=== PATIENT | male | born 1970 | race Caucasian/White ===

== ENCOUNTER 2017-06-03 12:02 | Inpatient (IN) | payer OTHER ==
[2017-06-03 13:52] VITALS: BMI 24.5
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
[2017-06-03] MEDS ORDERED: chlordiazePOXIDE HCL 25 MG CAPSULE PO PRN (16:27)
[2017-06-03] MEDS ORDERED: chlordiazePOXIDE HCL 25 MG CAPSULE PO ONE (16:27)
[2017-06-03] MEDS ORDERED: METHADONE HCL 10 MG TABLET (FOR DETOX USE ONLY) PO ONE ×2 (16:27→23:00)
[2017-06-03] MEDS ORDERED: MENTHOL/PHENOL 1 EACH UD MM PRN (16:28)
[2017-06-03] MEDS ORDERED: hydrOXYzine PAMOATE 50 MG CAPSULE (FP) PO PRN (16:28)
[2017-06-03] MEDS ORDERED: IBUPROFEN 400 MG TABLET (FP) PO PRN (16:28)
[2017-06-03] MEDS ORDERED: LOPERAMIDE HCL 2 MG CAPSULE PO PRN (16:28)
[2017-06-03] MEDS ORDERED: guaiFENesin/D-METHORPHAN HB 10 ML UNIT-DOSE CUPS PO PRN (16:28)
[2017-06-03] MEDS ORDERED: MAG HYDROX/AL HYDROX/SIMETH 30 ML UNIT-DOSE CUP PO PRN (16:28)
[2017-06-03] MEDS ORDERED: NICOTINE POLACRILEX 2 MG GUM BC PRN (16:28)
[2017-06-03] MEDS ORDERED: MAGNESIUM HYDROX 2400MG/30ML ORAL SUSPENSION 30 ML CUP PO PRN (16:28)
[2017-06-03] MEDS ORDERED: MAGNESIUM CITRATE 300 ML BOTTLE PO PRN (16:28)
[2017-06-03] MEDS ORDERED: ACETAMINOPHEN 325 MG TABLET (FP) PO PRN (16:28)
[2017-06-03] MEDS ORDERED: ALBUTEROL SO4 18 GM HFA INHALER IH PRN (16:32)
[2017-06-03] MEDS: THIAMINE HCL 100 MG TABLET (FP) PO SCH (22:51)
[2017-06-03] MEDS: chlordiazePOXIDE HCL 25 MG CAPSULE PO SCH (22:51)
[2017-06-03] MEDS: P-EPHED 60MG/TRIPROLIDI 2.5MG TABLET PO PRN (22:53)
[2017-06-04] MEDS: chlordiazePOXIDE HCL 25 MG CAPSULE PO SCH ×4 (06:33→22:32)
[2017-06-04] MEDS: P-EPHED 60MG/TRIPROLIDI 2.5MG TABLET PO PRN ×2 (06:34→22:33)
[2017-06-04 09:41] LABS: MCH 28.3 pg (25.7-33.7); MCHC 32.8 g/dl (32.0-35.9); MEAN CELL VOLUME 86.5 fl (80-96); MEAN PLT VOLUME 8.6 fl (7.5-11.1); PLATELET COUNT 224 K/MM3 (134-434); RDW 13.3 % (11.9-15.9); WHITE BLOOD COUNT 7.2 K/mm3 (4.0-10.0)
[2017-06-04] MEDS ORDERED: METHADONE HCL 10 MG TABLET (FOR DETOX USE ONLY) PO SCH (10:00)
[2017-06-04 10:09] LABS: ALBUMIN 3.3 g/dl (3.4-5.0); ALK PHOS 84 U/L (45-117); ANION GAP 7 (8-16); BILIRUBIN,TOTAL 0.4 mg/dL (0.2-1.0); CALCIUM 8.6 mg/dL (8.5-10.1); CO2 27 mmol/L (21-32); GLUCOSE,RANDOM 96 mg/dL (74-106); SGOT/AST 15 U/L (15-37); SGPT/ALT 15 U/L (12-78)
[2017-06-04] MEDS: PRENATAL VITAMINS W/ FOLIC ACID TABLET (FP) PO SCH (10:37)
[2017-06-04] MEDS ORDERED: FLU VACCINE QUAD 60 MCG/0.5 ML (MDV 17-18) IM ONE (12:00)
--- NOTE | 2017-06-04 12:10 | PN ---
[facility] CIWA - CIWA Score Nausea/Vomitin Muscle Tremors: 3 Anxiety: 3 Agitation: 2 Paroxysmal Sweats: 1-Minimal Palms Moist Orientation: 0-Oriented Tacttile Disturbances: 1-Very Mild Itch/Numbness Auditory Disturbances: 1-Very Mild Visual Disturbances: 0-None Headache: 2-Mild CIWA-Ar Total Score: 16 [facility]HS COWS - Scale Resting Pulse: 0= [place] 80 or Below Sweatin= Chills/Flushing Restless Observation: 3= Extraneous Movement Pupil Size: 1= Pupils >than Normal Bone or Joint Aches: 2= Severe Diffuse Aches Runny Nose/ Eye Tearin= Runny Nose/Eyes GI Upset > 30mins: 2= Nausea/Diarrhea Tremor Observation of Outstretched Hands: 2= Slight Tremor Visible Yawning Observation: 1= 1-2x During Session Anxiety or Irritability: 2=Irritable/Anxious Goose Flesh Skin: 0=Smooth Skin COWS Score: 16 [facility] Progress Note (SOAP) Subjective: alert,irritable,anxious,interrupted sleep,tremor,pain in the body and back Objective: 06/04/17 12:08 Vital Signs Temperature 98.2 F 06/04/17 11:06 Pulse Rate 76 06/04/17 11:06 Respiratory Rate 16 06/04/17 11:06 Blood Pressure 116/84 06/04/17 11:06 O2 Sat by Pulse Oximetry (%) ekg sinus bradycardia 48 min no chest pain,no sob,no dizziness Laboratory Last Values WBC 7.2 K/mm3 (4.0-10.0) 06/04/17 07:00 RBC 4.91 M/mm3 (4.00-5.60) 06/04/17 07:00 Hgb 13.9 GM/dL (11.7-16.9) 06/04/17 07:00 Hct 42.5 % (35.4-49) 06/04/17 07:00 MCV 86.5 fl (80-96) 06/04/17 07:00 MCH 28.3 pg (25.7-33.7) 06/04/17 07:00 MCHC 32.8 g/dl (32.0-35.9) 06/04/17 07:00 RDW 13.3 % (11.9-15.9) 06/04/17 07:00 Plt Count 224 K/MM3 (134-434) 06/04/17 07:00 MPV 8.6 fl (7.5-11.1) 06/04/17 07:00 Sodium 141 mmol/L (136-145) 06/04/17 07:00 Potassium 4.3 mmol/L (3.5-5.1) 06/04/17 07:00 Chloride 107 mmol/L (98-107) 06/04/17 07:00 Carbon Dioxide 27 mmol/L (21-32) 06/04/17 07:00 Anion Gap 7 (8-16) L 06/04/17 07:00 BUN 14 mg/dL (7-18) 06/04/17 07:00 Creatinine 1.0 mg/dL (0.7-1.3) 06/04/17 07:00 Creat Clearance w eGFR > 60 (>60) 06/04/17 07:00 Random Glucose 96 mg/dL (74-106) 06/04/17 07:00 Calcium 8.6 mg/dL (8.5-10.1) 06/04/17 07:00 Total Bilirubin 0.4 mg/dL (0.2-1.0) D 06/04/17 07:00 AST 15 U/L (15-37) D 06/04/17 07:00 ALT 15 U/L (12-78) D 06/04/17 07:00 Alkaline Phosphatase 84 U/L (45-117) 06/04/17 07:00 Total Protein 7.0 g/dl (6.4-8.2) 06/04/17 07:00 Albumin 3.3 g/dl (3.4-5.0) L 06/04/17 07:00 RPR Titer Nonreactive (NONREACTIVE) 06/04/17 07:00 Assessment: 06/04/17 12:09 withdrawal symptom Plan: continue detox
[2017-06-04] MEDS: THIAMINE HCL 100 MG TABLET (FP) PO SCH (22:32)
[2017-06-04] MEDS: diphenhydrAMINE HCL 50 MG CAPSULE PO PRN (22:32)
[2017-06-05] MEDS: chlordiazePOXIDE HCL 25 MG CAPSULE PO SCH ×3 (06:22→18:28)
--- NOTE | 2017-06-05 07:23 | EKG ---
Test Reason : Blood Pressure : / mmHG Vent. Rate : 049 BPM Atrial Rate : 049 BPM P-R Int : 158 ms QRS Dur : 110 ms QT Int : 380 ms P-R-T Axes : 053 026 044 degrees QTc Int : 343 ms SINUS BRADYCARDIA NONSPECIFIC T WAVE ABNORMALITY ABNORMAL ECG NO PREVIOUS ECGS AVAILABLE Confirmed by ANGELINA VIVAR MD ([id number]) on 06/05/2017 7:22:58 AM Referred By: Confirmed By:ANGELINA VIVAR MD
[2017-06-05] MEDS: PRENATAL VITAMINS W/ FOLIC ACID TABLET (FP) PO SCH (10:38)
[2017-06-05] MEDS: METHADONE HCL 5 MG TABLET (FOR DETOX USE ONLY) PO SCH (10:39)
--- NOTE | 2017-06-05 11:12 | PN ---
S CIWA - CIWA Score Nausea/Vomitin Muscle Tremors: 3 Anxiety: 3 Agitation: 2 Paroxysmal Sweats: 1-Minimal Palms Moist Orientation: 0-Oriented Tacttile Disturbances: 1-Very Mild Itch/Numbness Auditory Disturbances: 1-Very Mild Visual Disturbances: 0-None Headache: 2-Mild CIWA-Ar Total Score: 16 BHS COWS - Scale Resting Pulse: 0= [place] 80 or Below Sweatin= Chills/Flushing Restless Observation: 3= Extraneous Movement Pupil Size: 1= Pupils >than Normal Bone or Joint Aches: 2= Severe Diffuse Aches Runny Nose/ Eye Tearin= Nasal Congestion GI Upset > 30mins: 2= Nausea/Diarrhea Tremor Observation of Outstretched Hands: 2= Slight Tremor Visible Yawning Observation: 1= 1-2x During Session Anxiety or Irritability: 2=Irritable/Anxious Goose Flesh Skin: 0=Smooth Skin COWS Score: 15 [facility] Progress Note (SOAP) Subjective: alert,irritable,anxious,interrupted sleep,tremor,pain in the body and back Objective: 06/05/17 11:11 Vital Signs Temperature 98.4 F 06/05/17 10:00 Pulse Rate 78 06/05/17 10:00 Respiratory Rate 18 06/05/17 10:00 Blood Pressure 113/83 06/05/17 10:00 O2 Sat by Pulse Oximetry (%) Laboratory Last Values WBC 7.2 K/mm3 (4.0-10.0) 06/04/17 07:00 RBC 4.91 M/mm3 (4.00-5.60) 06/04/17 07:00 Hgb 13.9 GM/dL (11.7-16.9) 06/04/17 07:00 Hct 42.5 % (35.4-49) 06/04/17 07:00 MCV 86.5 fl (80-96) 06/04/17 07:00 MCH 28.3 pg (25.7-33.7) 06/04/17 07:00 MCHC 32.8 g/dl (32.0-35.9) 06/04/17 07:00 RDW 13.3 % (11.9-15.9) 06/04/17 07:00 Plt Count 224 K/MM3 (134-434) 06/04/17 07:00 MPV 8.6 fl (7.5-11.1) 06/04/17 07:00 Sodium 141 mmol/L (136-145) 06/04/17 07:00 Potassium 4.3 mmol/L (3.5-5.1) 06/04/17 07:00 Chloride 107 mmol/L (98-107) 06/04/17 07:00 Carbon Dioxide 27 mmol/L (21-32) 06/04/17 07:00 Anion Gap 7 (8-16) L 06/04/17 07:00 BUN 14 mg/dL (7-18) 06/04/17 07:00 Creatinine 1.0 mg/dL (0.7-1.3) 06/04/17 07:00 Creat Clearance w eGFR > 60 (>60) 06/04/17 07:00 Random Glucose 96 mg/dL (74-106) 06/04/17 07:00 Calcium 8.6 mg/dL (8.5-10.1) 06/04/17 07:00 Total Bilirubin 0.4 mg/dL (0.2-1.0) D 06/04/17 07:00 AST 15 U/L (15-37) D 06/04/17 07:00 ALT 15 U/L (12-78) D 06/04/17 07:00 Alkaline Phosphatase 84 U/L (45-117) 06/04/17 07:00 Total Protein 7.0 g/dl (6.4-8.2) 06/04/17 07:00 Albumin 3.3 g/dl (3.4-5.0) L 06/04/17 07:00 RPR Titer Nonreactive (NONREACTIVE) 06/04/17 07:00 Assessment: 06/05/17 11:11 withdrawal symptom Plan: continue detox
[2017-06-05] MEDS: chlordiazePOXIDE 5 MG CAPSULE PO SCH (22:25)
[2017-06-05] MEDS: THIAMINE HCL 100 MG TABLET (FP) PO SCH (22:25)
[2017-06-05] MEDS: P-EPHED 60MG/TRIPROLIDI 2.5MG TABLET PO PRN (22:27)
[2017-06-05 23:04] LABS: URINE APPEARANCE CLEAR; URINE BILIRUBIN NEGATIVE (NEGATIVE); URINE BLOOD NEGATIVE (NEGATIVE); URINE COLOR YELLOW; URINE GLUCOSE (UA) NEGATIVE (NEGATIVE); URINE KETONE NEGATIVE (NEGATIVE); URINE NITRITE NEGATIVE (NEGATIVE); URINE PROTEIN NEGATIVE (NEGATIVE)
[2017-06-06] MEDS: chlordiazePOXIDE 5 MG CAPSULE PO SCH ×3 (05:21→17:39)
[2017-06-06 09:44] LABS: URINE LEUK ESTERASE Negative (NEGATIVE)
[2017-06-06] MEDS: PRENATAL VITAMINS W/ FOLIC ACID TABLET (FP) PO SCH (10:02)
[2017-06-06] MEDS: METHADONE HCL 5 MG TABLET (FOR DETOX USE ONLY) PO SCH (10:02)
--- NOTE | 2017-06-06 11:38 | PN ---
[facility] Progress Note (SOAP) Subjective: alert,irritable,anxious,interrupted sleep,pain in the body Objective: 06/06/17 11:37 Vital Signs Temperature 96.7 F L 06/06/17 10:00 Pulse Rate 79 06/06/17 10:00 Respiratory Rate 18 06/06/17 10:00 Blood Pressure 139/74 06/06/17 10:00 O2 Sat by Pulse Oximetry (%) Assessment: 06/06/17 11:37 withdrawal symptom Plan: continue detox
[2017-06-06] MEDS: diphenhydrAMINE HCL 50 MG CAPSULE PO PRN (22:34)
[2017-06-06] MEDS: chlordiazePOXIDE HCL 10 MG CAPSULE PO SCH (22:34)
[2017-06-06] MEDS: THIAMINE HCL 100 MG TABLET (FP) PO SCH (22:34)
[2017-06-06] MEDS: P-EPHED 60MG/TRIPROLIDI 2.5MG TABLET PO PRN (22:35)
[2017-06-07] MEDS: chlordiazePOXIDE HCL 10 MG CAPSULE PO SCH ×2 (05:23→10:51)
[2017-06-07] MEDS ORDERED: METHADONE HCL 10 MG TABLET (FOR DETOX USE ONLY) PO SCH (10:00)
--- NOTE | 2017-06-07 10:45 | PN ---
[facility] Progress Note (SOAP) Subjective: alert,irritable,anxious,interrupted sleep Objective: 06/07/17 10:44 Vital Signs Temperature 99.3 F 06/07/17 09:54 Pulse Rate 81 06/07/17 09:54 Respiratory Rate 16 06/07/17 09:54 Blood Pressure 138/91 06/07/17 09:54 O2 Sat by Pulse Oximetry (%) Assessment: 06/07/17 10:44 withdrawal symptom Plan: continue detox,discharge in am
[2017-06-07] MEDS: PRENATAL VITAMINS W/ FOLIC ACID TABLET (FP) PO SCH (10:51)
--- NOTE | 2017-06-07 13:52 | PN ---
[facility] Progress Note Note: patient would like to be discharged,stable for discharge,seen by counselor, follow up with after care program as arrangement
--- NOTE | 2017-06-07 13:56 | DS ---
[facility] Detox Discharge Summary Admission Date: 06/03/17 Discharge Date: 06/07/17 - History Present History: Alcohol Dependence, Cannabis Dependence, Cocaine Dependence, Opioid Dependence Additional Comments: follow up with after care program as arrangement Pertinent Past History: weight decreased nicotine dependence - Physical Exam Results Vital Signs: Vital Signs Temperature 99.3 F 06/07/17 09:54 Pulse Rate 81 06/07/17 09:54 Respiratory Rate 16 06/07/17 09:54 Blood Pressure 138/91 06/07/17 09:54 O2 Sat by Pulse Oximetry (%) Pertinent Admission Physical Exam Findings: withdrawal finding - Treatment Hospital Course: Detox Protocol Followed, Detoxed Safely, Responded well, Discharged Condition Good Patient has Accepted a Rehab Referral to: declined - Medication Discharge Medications: Ambulatory Orders Albuterol Sulfate Inhaler - [Ventolin HFA Inhaler -] 2 inh IH Q4H PRN #0 - Diagnosis (1) Opioid dependence with withdrawal Current Visit: No Status: Chronic (2) Alcohol dependence with uncomplicated withdrawal Current Visit: Yes Status: Acute (3) Cannabis dependence Current Visit: No Status: Chronic (4) Cocaine dependence Current Visit: Yes Status: Acute (5) Weight decreased Current Visit: No Status: Chronic (6) Nicotine dependence Current Visit: Yes Status: Acute - AMA Did Patient Leave Against Medical Advice: No
[2017-06-07 14:14] VITALS: BP 109/70; PULSE 87; TEMP 98.5
[2017-06-08] MEDS ORDERED: METHADONE HCL 5 MG TABLET (FOR DETOX USE ONLY) PO SCH (06:00)
== END 2017-06-07 14:06 | disposition home or self-care (01) | DRG 773 ==
LOC: YASAS 12:02 → Y6N 15:56
PROVIDERS: ADMIT Internal Medicine; ATTEND Internal Medicine
PROC: HZ2ZZZZ Detoxification Services for Substance Abuse Treatment (ICD-10-PCS; principal; 2017-06-03)
DX: F11.23 Opioid dependence with withdrawal (principal); F10.230 Alcohol dependence with withdrawal, uncomplicated; F14.20 Cocaine dependence, uncomplicated; F12.20 Cannabis dependence, uncomplicated; F17.210 Nicotine dependence, cigarettes, uncomplicated; Z68.24 Body mass index [BMI] 24.0-24.9, adult; Z59.0 Homelessness
CPT/HCPCS: 36415; 80053; 81003; 85027; 86593; 93005; 93010

== ENCOUNTER 2020-11-09 10:52 | Inpatient (IN) | payer OTHER ==
[2020-11-09 11:36] VITALS: BMI 25.8
[2020-11-09] MEDS ORDERED: ALBUTEROL SO4 HFA INHALER IH PRN (12:27)
[2020-11-09] MEDS ORDERED: NICOTINE POLACRILEX 2 MG GUM BUC PRN (12:28)
[2020-11-09] MEDS ORDERED: MENTHOL/PHENOL 1 EACH UD MM PRN (12:28)
[2020-11-09] MEDS ORDERED: METHOCARBAMOL 500 MG TABLET PO PRN (12:28)
[2020-11-09] MEDS ORDERED: METHADONE HCL 10 MG TABLET (FOR DETOX USE ONLY) PO ONE (12:28)
[2020-11-09] MEDS ORDERED: MAGNESIUM CITRATE 300 ML BOTTLE PO PRN (12:28)
[2020-11-09] MEDS ORDERED: MAGNESIUM HYDROX 2400MG/30ML ORAL SUSPENSION 30 ML CUP PO PRN (12:28)
[2020-11-09] MEDS ORDERED: ACETAMINOPHEN 325 MG TABLET (FP) PO PRN ×2 (12:28)
[2020-11-09] MEDS ORDERED: cloNIDine HCL 0.1 MG TABLET PO PRN (12:28)
[2020-11-09] MEDS ORDERED: BISMUTH SUBSALICYLATE 262 MG/15 ML BTL PO PRN (12:28)
[2020-11-09] MEDS ORDERED: ONDANSETRON *ODT* 4 MG TABLET SL PRN (12:28)
[2020-11-09] MEDS ORDERED: MAG HYDROX/AL HYDROX/SIMETH 30 ML UNIT-DOSE CUP PO PRN (12:28)
[2020-11-09] MEDS: PRENATAL VITAMINS W/ FOLIC ACID TABLET (FP) PO SCH (13:12)
[2020-11-09] MEDS: hydrOXYzine PAMOATE 25 MG CAPSULE (FP) PO SCH ×3 (13:12→23:16)
[2020-11-09] MEDS: NICOTINE 14 MG/24 HOURS TOPICAL PATCH TD SCH (13:13)
[2020-11-09] MEDS: IBUPROFEN 400 MG TABLET (FP) PO PRN (13:13)
[2020-11-09 14:49] LABS: HEMATOCRIT 38.8 % (35.4-49); HEMOGLOBIN 13.5 GM/dL (11.7-16.9); MCH 29.8 pg (25.7-33.7); MCHC 34.8 g/dl (32.0-35.9); MEAN CELL VOLUME 85.6 fl (80-96); MEAN PLT VOLUME 8.8 fl (7.5-11.1); PLATELET COUNT 231 K/MM3 (134-434); RBC 4.53 M/mm3 (4.00-5.60); RDW 13.3 % (11.9-15.9); WHITE BLOOD COUNT 6.2 K/mm3 (4.0-10.0)
[2020-11-09 14:51] LABS: POTASSIUM 3.8 mmol/L (3.5-5.1)
[2020-11-09 14:58] LABS: CALCIUM 9.2 mg/dL (8.5-10.1)
[2020-11-09 14:59] LABS: BLOOD UREA NITROGEN 18.2 mg/dL (7-18)
[2020-11-09 15:00] LABS: CREATININE 1.3 mg/dL (0.55-1.3)
[2020-11-09 15:01] LABS: BILIRUBIN,TOTAL 0.9 mg/dL (0.2-1); TOT PROT 7.5 g/dl (6.4-8.2)
[2020-11-09 15:46] LABS: HIV INTERPRETATION NEGATIVE (NEGATIVE)
[2020-11-09] MEDS: QUEtiapine FUMARATE 50 MG TABLET PO SCH (23:15)
[2020-11-09] MEDS: MELATONIN 5 MG TABLETS PO SCH (23:16)
[2020-11-09] MEDS: THIAMINE HCL 100 MG TABLET (FP) PO SCH (23:17)
[2020-11-10] MEDS: hydrOXYzine PAMOATE 25 MG CAPSULE (FP) PO SCH ×2 (06:41→10:26)
[2020-11-10] MEDS ORDERED: METHADONE HCL 5 MG TABLET (FOR DETOX USE ONLY) ONE (09:04)
[2020-11-10] MEDS ORDERED: METHADONE HCL 10 MG TABLET (FOR DETOX USE ONLY) ONE (09:04)
[2020-11-10] MEDS ORDERED: METHADONE (DETOX) 20 MG, METHADONE (DETOX) 5 MG PO ONE (10:00)
[2020-11-10] MEDS: amLODIPine BESYLATE 10 MG TABLET (FP) PO SCH (10:26)
[2020-11-10] MEDS: PRENATAL VITAMINS W/ FOLIC ACID TABLET (FP) PO SCH (10:26)
[2020-11-10] MEDS: NICOTINE 14 MG/24 HOURS TOPICAL PATCH TD SCH (10:26)
[2020-11-10] MEDS: THIAMINE HCL 100 MG TABLET (FP) PO SCH (22:31)
[2020-11-10] MEDS: QUEtiapine FUMARATE 50 MG TABLET PO SCH (22:31)
[2020-11-10] MEDS: MELATONIN 5 MG TABLETS PO SCH (22:31)
[2020-11-10] MEDS: hydrOXYzine PAMOATE 25 MG CAPSULE (FP) PO PRN (22:32)
[2020-11-11] MEDS ORDERED: METHADONE HCL 10 MG TABLET (FOR DETOX USE ONLY) PO ONE (10:00)
[2020-11-11] MEDS: IBUPROFEN 400 MG TABLET (FP) PO PRN (10:13)
[2020-11-11] MEDS: amLODIPine BESYLATE 10 MG TABLET (FP) PO SCH (10:14)
[2020-11-11] MEDS: NICOTINE 14 MG/24 HOURS TOPICAL PATCH TD SCH (10:14)
[2020-11-11] MEDS: PRENATAL VITAMINS W/ FOLIC ACID TABLET (FP) PO SCH (10:14)
[2020-11-11] MEDS ORDERED: PNEUMOC 13-VAL CONJ-DIP CRM/PF 0.5 ML DISP.SYRIN IM ONE (11:57)
[2020-11-11] MEDS ORDERED: PNEUMOCOCCAL 23 VACCINE 0.5 ML VIAL IM ONE (12:00)
[2020-11-11] MEDS: MELATONIN 5 MG TABLETS PO SCH (21:33)
[2020-11-11] MEDS: THIAMINE HCL 100 MG TABLET (FP) PO SCH (21:33)
[2020-11-11] MEDS: QUEtiapine FUMARATE 50 MG TABLET PO SCH (21:33)
[2020-11-11] MEDS: hydrOXYzine PAMOATE 25 MG CAPSULE (FP) PO PRN (21:34)
[2020-11-12] MEDS ORDERED: METHADONE HCL 10 MG TABLET (FOR DETOX USE ONLY) ONE (08:54)
[2020-11-12] MEDS ORDERED: METHADONE HCL 5 MG TABLET (FOR DETOX USE ONLY) ONE (08:54)
[2020-11-12] MEDS ORDERED: METHADONE (DETOX) 10 MG, METHADONE (DETOX) 5 MG PO ONE (10:00)
[2020-11-12] MEDS: amLODIPine BESYLATE 10 MG TABLET (FP) PO SCH (10:06)
[2020-11-12] MEDS: PRENATAL VITAMINS W/ FOLIC ACID TABLET (FP) PO SCH (10:06)
[2020-11-12] MEDS: hydrOXYzine PAMOATE 25 MG CAPSULE (FP) PO PRN ×2 (10:07→22:28)
[2020-11-12] MEDS: NICOTINE 14 MG/24 HOURS TOPICAL PATCH TD SCH (10:08)
[2020-11-12] MEDS: IBUPROFEN 400 MG TABLET (FP) PO PRN (22:28)
[2020-11-12] MEDS: THIAMINE HCL 100 MG TABLET (FP) PO SCH (22:28)
[2020-11-12] MEDS: QUEtiapine FUMARATE 50 MG TABLET PO SCH (22:28)
[2020-11-12] MEDS: MELATONIN 5 MG TABLETS PO SCH (22:29)
[2020-11-13] MEDS ORDERED: METHADONE HCL 10 MG TABLET (FOR DETOX USE ONLY) PO ONE (10:00)
[2020-11-13] MEDS: hydrOXYzine PAMOATE 25 MG CAPSULE (FP) PO PRN ×2 (10:08→22:05)
[2020-11-13] MEDS: NICOTINE 14 MG/24 HOURS TOPICAL PATCH TD SCH (10:09)
[2020-11-13] MEDS: IBUPROFEN 400 MG TABLET (FP) PO PRN ×2 (10:09→22:04)
[2020-11-13] MEDS: PRENATAL VITAMINS W/ FOLIC ACID TABLET (FP) PO SCH (10:09)
[2020-11-13] MEDS: amLODIPine BESYLATE 10 MG TABLET (FP) PO SCH (10:09)
[2020-11-13] MEDS: QUEtiapine FUMARATE 50 MG TABLET PO SCH (22:03)
[2020-11-13] MEDS: MELATONIN 5 MG TABLETS PO SCH (22:03)
[2020-11-13] MEDS: THIAMINE HCL 100 MG TABLET (FP) PO SCH (22:03)
[2020-11-14] MEDS ORDERED: METHADONE HCL 5 MG TABLET (FOR DETOX USE ONLY) PO ONE (06:00)
[2020-11-14] MEDS: amLODIPine BESYLATE 10 MG TABLET (FP) PO SCH (10:13)
[2020-11-14] MEDS: NICOTINE 14 MG/24 HOURS TOPICAL PATCH TD SCH (10:13)
[2020-11-14] MEDS: PRENATAL VITAMINS W/ FOLIC ACID TABLET (FP) PO SCH (10:14)
[2020-11-14] MEDS ORDERED: METHADONE HCL 10 MG TABLET (FOR DETOX USE ONLY) PO ONE (11:00)
[2020-11-14 17:57] VITALS: BP 99/79; PULSE 67; TEMP 97.5
== END 2020-11-14 17:50 | disposition other institution (70) | DRG 773 ==
LOC: YASAS 10:52 → Y3N 12:44
PROVIDERS: ADMIT Allergy & Immunology; ATTEND Allergy & Immunology
PROC: HZ2ZZZZ Detoxification Services for Substance Abuse Treatment (ICD-10-PCS; principal; 2020-11-09)
DX: F11.23 Opioid dependence with withdrawal (principal); F10.230 Alcohol dependence with withdrawal, uncomplicated; F17.210 Nicotine dependence, cigarettes, uncomplicated; F19.24 Other psychoactive substance dependence with psychoactive substance-induced mood disorder; G47.00 Insomnia, unspecified; I10 Essential (primary) hypertension; J45.909 Unspecified asthma, uncomplicated; R79.89 Other specified abnormal findings of blood chemistry; Z87.828 Personal history of other (healed) physical injury and trauma; Z98.890 Other specified postprocedural states; Z59.0 Homelessness
CPT/HCPCS: 36415; 80053; 85027; 86780; 87389; 90732; 93005; 93010; C9803; G0009; U0003

== ENCOUNTER 2020-11-14 17:58 | Inpatient (IN) | payer OTHER ==
[2020-11-14] MEDS ORDERED: P-EPHED 60MG/TRIPROLIDI 2.5MG TABLET PO PRN (21:08)
[2020-11-14] MEDS ORDERED: MAG HYDROX/AL HYDROX/SIMETH 30 ML UNIT-DOSE CUP PO PRN (21:08)
[2020-11-14] MEDS ORDERED: MAGNESIUM CITRATE 300 ML BOTTLE PO PRN (21:08)
[2020-11-14] MEDS ORDERED: LOPERAMIDE HCL 2 MG CAPSULE PO PRN (21:08)
[2020-11-14] MEDS ORDERED: guaiFENesin 200 MG/10 ML 10 ML UNIT-DOSE CUPS PO PRN (21:08)
[2020-11-14] MEDS ORDERED: NICOTINE POLACRILEX 2 MG GUM BUC PRN (21:08)
[2020-11-14] MEDS ORDERED: ACETAMINOPHEN 325 MG TABLET (FP) PO PRN (21:08)
[2020-11-14] MEDS ORDERED: MAGNESIUM HYDROX 2400MG/30ML ORAL SUSPENSION 30 ML CUP PO PRN (21:08)
[2020-11-14] MEDS ORDERED: MENTHOL/PHENOL 1 EACH UD MM PRN (21:08)
[2020-11-14] MEDS: MELATONIN 5 MG TABLETS PO SCH (21:44)
[2020-11-14] MEDS: THIAMINE HCL 100 MG TABLET (FP) PO SCH (21:45)
[2020-11-14] MEDS: hydrOXYzine PAMOATE 25 MG CAPSULE (FP) PO PRN (21:48)
[2020-11-14] MEDS: IBUPROFEN 400 MG TABLET (FP) PO PRN (21:48)
[2020-11-15] MEDS: PRENATAL VITAMINS W/ FOLIC ACID TABLET (FP) PO SCH (10:15)
[2020-11-15] MEDS: NICOTINE 7 MG/24 HOURS TOPICAL PATCH TD SCH (10:16)
[2020-11-15] MEDS: COLLOIDAL OATMEAL 1 EACH PACKET TP SCH (10:16)
[2020-11-15] MEDS ORDERED: ONDANSETRON *ODT* 4 MG TABLET SL PRN (10:29)
[2020-11-15] MEDS ORDERED: ALBUTEROL SO4 HFA INHALER IH PRN (10:50)
[2020-11-15] MEDS: amLODIPine BESYLATE 10 MG TABLET (FP) PO SCH (11:46)
[2020-11-15] MEDS: IBUPROFEN 400 MG TABLET (FP) PO PRN (11:48)
[2020-11-15] MEDS: hydrOXYzine PAMOATE 25 MG CAPSULE (FP) PO PRN ×2 (14:42→21:27)
[2020-11-15] MEDS: QUEtiapine FUMARATE 50 MG TABLET PO SCH (21:27)
[2020-11-15] MEDS: MELATONIN 5 MG TABLETS PO SCH (21:27)
[2020-11-15] MEDS: THIAMINE HCL 100 MG TABLET (FP) PO SCH (21:27)
[2020-11-16] MEDS: NICOTINE 7 MG/24 HOURS TOPICAL PATCH TD SCH (09:52)
[2020-11-16] MEDS: PRENATAL VITAMINS W/ FOLIC ACID TABLET (FP) PO SCH (09:53)
[2020-11-16] MEDS: amLODIPine BESYLATE 10 MG TABLET (FP) PO SCH (09:53)
[2020-11-16] MEDS: hydrOXYzine PAMOATE 25 MG CAPSULE (FP) PO PRN ×2 (09:53→21:02)
[2020-11-16] MEDS: COLLOIDAL OATMEAL 1 EACH PACKET TP SCH (09:54)
[2020-11-16] MEDS ORDERED: COLLOIDAL OATMEAL 1 EACH PACKET TP PRN (10:43)
[2020-11-16] MEDS: MELATONIN 5 MG TABLETS PO SCH (21:01)
[2020-11-16] MEDS: QUEtiapine FUMARATE 50 MG TABLET PO SCH (21:01)
[2020-11-16] MEDS: THIAMINE HCL 100 MG TABLET (FP) PO SCH (21:01)
[2020-11-16] MEDS: IBUPROFEN 400 MG TABLET (FP) PO PRN (21:03)
[2020-11-17] MEDS: PRENATAL VITAMINS W/ FOLIC ACID TABLET (FP) PO SCH (09:38)
[2020-11-17] MEDS: hydrOXYzine PAMOATE 25 MG CAPSULE (FP) PO PRN ×2 (09:38→21:48)
[2020-11-17] MEDS: amLODIPine BESYLATE 10 MG TABLET (FP) PO SCH (09:38)
[2020-11-17] MEDS: NICOTINE 7 MG/24 HOURS TOPICAL PATCH TD SCH (09:39)
[2020-11-17] MEDS ORDERED: BUPRENORPHINE/NALOXONE 4 MG/1 MG FILM PACKET SL ONE ×2 (11:30→18:00)
[2020-11-17] MEDS ORDERED: BUPRENORPHINE/NALOXONE 4 MG/1 MG FILM PACKET SL SCH (18:00)
[2020-11-17] MEDS: THIAMINE HCL 100 MG TABLET (FP) PO SCH (21:48)
[2020-11-17] MEDS: MELATONIN 5 MG TABLETS PO SCH (21:48)
[2020-11-17] MEDS: QUEtiapine FUMARATE 25 MG TABLET PO SCH (21:49)
[2020-11-18] MEDS: NICOTINE 7 MG/24 HOURS TOPICAL PATCH TD SCH (09:54)
[2020-11-18] MEDS: PRENATAL VITAMINS W/ FOLIC ACID TABLET (FP) PO SCH (09:54)
[2020-11-18] MEDS: amLODIPine BESYLATE 10 MG TABLET (FP) PO SCH (09:54)
[2020-11-18] MEDS: hydrOXYzine PAMOATE 25 MG CAPSULE (FP) PO PRN ×2 (09:54→21:35)
[2020-11-18] MEDS: BUPRENORPHINE/NALOXONE 4 MG/1 MG FILM PACKET SL SCH ×2 (09:55→17:38)
[2020-11-18] MEDS ORDERED: BUPRENORPHINE/NALOXONE 4 MG/1 MG FILM PACKET SL SCH (10:00)
[2020-11-18] MEDS: MELATONIN 5 MG TABLETS PO SCH (21:34)
[2020-11-18] MEDS: QUEtiapine FUMARATE 25 MG TABLET PO SCH (21:34)
[2020-11-18] MEDS: THIAMINE HCL 100 MG TABLET (FP) PO SCH (21:34)
[2020-11-19] MEDS: PRENATAL VITAMINS W/ FOLIC ACID TABLET (FP) PO SCH (09:47)
[2020-11-19] MEDS: amLODIPine BESYLATE 10 MG TABLET (FP) PO SCH (09:48)
[2020-11-19] MEDS: NICOTINE 7 MG/24 HOURS TOPICAL PATCH TD SCH (09:48)
[2020-11-19] MEDS: BUPRENORPHINE/NALOXONE 4 MG/1 MG FILM PACKET SL SCH ×2 (09:48→18:00)
[2020-11-19] MEDS: MELATONIN 5 MG TABLETS PO SCH (21:28)
[2020-11-19] MEDS: QUEtiapine FUMARATE 25 MG TABLET PO SCH (21:29)
[2020-11-19] MEDS: THIAMINE HCL 100 MG TABLET (FP) PO SCH (21:29)
[2020-11-19] MEDS: hydrOXYzine PAMOATE 25 MG CAPSULE (FP) PO PRN (21:30)
[2020-11-20] MEDS: PRENATAL VITAMINS W/ FOLIC ACID TABLET (FP) PO SCH (10:26)
[2020-11-20] MEDS: amLODIPine BESYLATE 10 MG TABLET (FP) PO SCH (10:26)
[2020-11-20] MEDS: NICOTINE 7 MG/24 HOURS TOPICAL PATCH TD SCH (10:27)
[2020-11-20] MEDS: BUPRENORPHINE/NALOXONE 4 MG/1 MG FILM PACKET SL SCH ×2 (10:27→17:59)
[2020-11-20] MEDS ORDERED: MASKS NR ONE (10:29)
[2020-11-20] MEDS: QUEtiapine FUMARATE 25 MG TABLET PO SCH (21:21)
[2020-11-20] MEDS: THIAMINE HCL 100 MG TABLET (FP) PO SCH (21:21)
[2020-11-20] MEDS: MELATONIN 5 MG TABLETS PO SCH (21:21)
[2020-11-20] MEDS: hydrOXYzine PAMOATE 25 MG CAPSULE (FP) PO PRN (21:22)
[2020-11-21 10:09] LABS: SARS-CoV-2 NAA Not Detected (Not Detected)
[2020-11-21] MEDS: PRENATAL VITAMINS W/ FOLIC ACID TABLET (FP) PO SCH (10:17)
[2020-11-21] MEDS: NICOTINE 7 MG/24 HOURS TOPICAL PATCH TD SCH (10:17)
[2020-11-21] MEDS: hydrOXYzine PAMOATE 25 MG CAPSULE (FP) PO PRN ×2 (10:17→21:33)
[2020-11-21] MEDS: BUPRENORPHINE/NALOXONE 4 MG/1 MG FILM PACKET SL SCH ×2 (10:17→18:03)
[2020-11-21] MEDS: amLODIPine BESYLATE 10 MG TABLET (FP) PO SCH (10:17)
[2020-11-21] MEDS: MELATONIN 5 MG TABLETS PO SCH (21:33)
[2020-11-21] MEDS: QUEtiapine FUMARATE 25 MG TABLET PO SCH (21:33)
[2020-11-21] MEDS: THIAMINE HCL 100 MG TABLET (FP) PO SCH (21:33)
[2020-11-22] MEDS: BUPRENORPHINE/NALOXONE 4 MG/1 MG FILM PACKET SL SCH ×2 (10:11→19:13)
[2020-11-22] MEDS: NICOTINE 7 MG/24 HOURS TOPICAL PATCH TD SCH (10:11)
[2020-11-22] MEDS: PRENATAL VITAMINS W/ FOLIC ACID TABLET (FP) PO SCH (10:11)
[2020-11-22] MEDS: amLODIPine BESYLATE 10 MG TABLET (FP) PO SCH (10:11)
[2020-11-22] MEDS: THIAMINE HCL 100 MG TABLET (FP) PO SCH (21:23)
[2020-11-22] MEDS: MELATONIN 5 MG TABLETS PO SCH (21:23)
[2020-11-22] MEDS: QUEtiapine FUMARATE 25 MG TABLET PO SCH (21:23)
[2020-11-22] MEDS: hydrOXYzine PAMOATE 25 MG CAPSULE (FP) PO PRN (21:23)
[2020-11-22] MEDS: IBUPROFEN 400 MG TABLET (FP) PO PRN (21:23)
[2020-11-23] MEDS: amLODIPine BESYLATE 10 MG TABLET (FP) PO SCH (09:57)
[2020-11-23] MEDS: PRENATAL VITAMINS W/ FOLIC ACID TABLET (FP) PO SCH (09:57)
[2020-11-23] MEDS: BUPRENORPHINE/NALOXONE 4 MG/1 MG FILM PACKET SL SCH ×2 (09:58→17:23)
[2020-11-23] MEDS: NICOTINE 7 MG/24 HOURS TOPICAL PATCH TD SCH (09:58)
[2020-11-23] MEDS: MELATONIN 5 MG TABLETS PO SCH (21:22)
[2020-11-23] MEDS: hydrOXYzine PAMOATE 25 MG CAPSULE (FP) PO PRN (21:22)
[2020-11-23] MEDS: THIAMINE HCL 100 MG TABLET (FP) PO SCH (21:23)
[2020-11-23] MEDS: QUEtiapine FUMARATE 25 MG TABLET PO SCH (21:23)
[2020-11-24] MEDS: PRENATAL VITAMINS W/ FOLIC ACID TABLET (FP) PO SCH (09:48)
[2020-11-24] MEDS: amLODIPine BESYLATE 10 MG TABLET (FP) PO SCH (09:49)
[2020-11-24] MEDS: BUPRENORPHINE/NALOXONE 4 MG/1 MG FILM PACKET SL SCH ×2 (09:49→17:58)
[2020-11-24] MEDS: NICOTINE 7 MG/24 HOURS TOPICAL PATCH TD SCH (09:49)
[2020-11-24] MEDS: THIAMINE HCL 100 MG TABLET (FP) PO SCH (21:06)
[2020-11-24] MEDS: MELATONIN 5 MG TABLETS PO SCH (21:06)
[2020-11-24] MEDS: hydrOXYzine PAMOATE 25 MG CAPSULE (FP) PO PRN (21:08)
[2020-11-24] MEDS: IBUPROFEN 400 MG TABLET (FP) PO PRN (21:09)
[2020-11-24] MEDS: QUEtiapine FUMARATE 25 MG TABLET PO SCH (21:09)
[2020-11-25] MEDS: PRENATAL VITAMINS W/ FOLIC ACID TABLET (FP) PO SCH (10:03)
[2020-11-25] MEDS: BUPRENORPHINE/NALOXONE 4 MG/1 MG FILM PACKET SL SCH ×2 (10:04→18:05)
[2020-11-25] MEDS: NICOTINE 7 MG/24 HOURS TOPICAL PATCH TD SCH (10:04)
[2020-11-25] MEDS: amLODIPine BESYLATE 10 MG TABLET (FP) PO SCH (10:04)
[2020-11-25] MEDS: MELATONIN 5 MG TABLETS PO SCH (21:19)
[2020-11-25] MEDS: hydrOXYzine PAMOATE 25 MG CAPSULE (FP) PO PRN (21:19)
[2020-11-25] MEDS: QUEtiapine FUMARATE 25 MG TABLET PO SCH (21:19)
[2020-11-25] MEDS: THIAMINE HCL 100 MG TABLET (FP) PO SCH (21:19)
[2020-11-25] MEDS: IBUPROFEN 400 MG TABLET (FP) PO PRN (21:20)
[2020-11-26] MEDS: PRENATAL VITAMINS W/ FOLIC ACID TABLET (FP) PO SCH (09:06)
[2020-11-26] MEDS: amLODIPine BESYLATE 10 MG TABLET (FP) PO SCH (09:07)
[2020-11-26] MEDS: BUPRENORPHINE/NALOXONE 4 MG/1 MG FILM PACKET SL SCH (09:07)
[2020-11-26] MEDS: NICOTINE 7 MG/24 HOURS TOPICAL PATCH TD SCH (09:07)
[2020-11-26 10:47] VITALS: BP 141/87; PULSE 85; TEMP 97.3
== END 2020-11-26 10:05 | disposition home or self-care (01) | DRG 772 ==
LOC: YASAS 17:58 → Y5N 18:00
PROVIDERS: ADMIT Allergy & Immunology; ATTEND Allergy & Immunology
PROC: HZ42ZZZ Group Counseling for Substance Abuse Treatment, Cognitive-Behavioral (ICD-10-PCS; principal; 2020-11-14)
DX: F11.20 Opioid dependence, uncomplicated (principal); F10.20 Alcohol dependence, uncomplicated; F14.20 Cocaine dependence, uncomplicated; F12.20 Cannabis dependence, uncomplicated; F17.210 Nicotine dependence, cigarettes, uncomplicated; F39 Unspecified mood [affective] disorder; G47.00 Insomnia, unspecified; I10 Essential (primary) hypertension; J45.909 Unspecified asthma, uncomplicated; Z51.81 Encounter for therapeutic drug level monitoring
CPT/HCPCS: C9803; Q0162; U0003; U0005